=== PATIENT | male | born 1935 | race Caucasian/White ===

== ENCOUNTER → 2016-04-29 | Outpatient (CLI) | payer OTHER, MEDICARE | END | disposition home or self-care (01) | LOC: RAD 20:00 | PROC: 0TH533Z Insertion of Infusion Device into Kidney, Percutaneous Approach (ICD-10-PCS; principal; 2016-04-29) | DX: N13.9 Obstructive and reflux uropathy, unspecified (principal) | CPT/HCPCS: 50433; C1729; C1769; J3010 ==

== ENCOUNTER → 2016-11-26 | Outpatient (CLI) | payer OTHER, MEDICARE ==
[~2016-11-26] MED LIST: AMIODARONE HCL200 MG PO; CALCIUM 500 +1 EACH PO; COUMADIN4 MG PO; LIPITOR40 MG PO; LOPRESSOR25 MG PO; [UNRECOGNIZED DRUG - OTHER] SC
== END | disposition home or self-care (01) ==
LOC: RAD 15:57
DX: T83.022D Displacement of nephrostomy catheter, subsequent encounter (principal)
CPT/HCPCS: 50435; C1725; C1766; C1769

== ENCOUNTER 2017-01-06 23:01 | Inpatient (IN) | payer OTHER, MEDICARE ==
[~2017-01-06] VITALS: Ht 182.9 cm; Wt 93.4 kg
[2017-01-06 23:59] LABS: HEMATOCRIT 36.1 % (38.0-50.0); MCH 25.7 PG (29.0-34.0); MEAN PLAT.VOLUME 9.8 uM^3 (9.0-12.4); PLATELET COUNT 210 K/uL (156-360); RBC DIS.WIDTH-CV 18.1 % (11.8-14.6); RBC DIS.WIDTH-SD 54.7 % (39-53); RED BLOOD COUNT 4.35 M/uL (4.00-5.50); WHITE BLOOD COUNT 8.2 K/uL (4.1-10.2)
[2017-01-07 00:04] LABS: INTER. NORMALIZED RATIO 3.5; PROTHROMBIN TIME 40.7 SEC (10.2-12.9)
[2017-01-07 00:07] LABS: PTT 42.9 SEC (25-37)
[2017-01-07 00:11] LABS: CHLORIDE 98 mEq/L (99-109); POTASSIUM 4.3 mEq/L (3.7-5.4); SODIUM 130 mEq/L (136-147)
[2017-01-07 00:13] LABS: GLUCOSE 157 mg/dL (70-99)
[2017-01-07 00:14] LABS: ANION GAP 12 MEQ/L (2-14)
[2017-01-07 00:15] LABS: TOTAL BILIRUBIN 0.6 mg/dL (0.0-1.0)
[2017-01-07 00:16] LABS: ALKALINE PHOSPHATASE 129 IU/L (3-129)
[2017-01-07 00:17] LABS: GFR ESTIMATE (CALCULATED) 23 mL/min/
[2017-01-07 00:18] LABS: UREA NITROGEN (BUN) 31 mg/dL (9-23)
[2017-01-07 00:20] LABS: LIPASE 39 U/L (1.0-51.0)
[2017-01-07 01:44] LABS: ADD MIUA? YES; BILIRUBIN NEGATIVE; BLOOD MODERATE; COLOR YELLOW ((YELLOW)); GLUCOSE (STRIP) 50; KETONES NEGATIVE; LEUKOCYTES LARGE; NITRITE POSITIVE; PROTEIN (STRIP) 100; SPECIFIC GRAVITY 1.011 (1.000-1.030); UROBILINOGEN 0.2 MG/DL (0.2-1.0)
[2017-01-07 02:16] LABS: BACTERIA 3+ /HPF; CASTS NONE SEEN /LPF; CRYSTALS NONE SEEN; EPITHELIAL CELLS NONE SEEN /HPF; MUCUS NONE SEEN /LPF; RED BLOOD CELLS NONE SEEN /HPF (0-5); UCUL ADDED? YES; WHITE BLOOD CELLS 0-5 /HPF (0-5)
[2017-01-07 05:43] LABS: INTER. NORMALIZED RATIO 3.4; PROTHROMBIN TIME 38.9 SEC (10.2-12.9)
[2017-01-07 06:07] VITALS: BP 147/69
[2017-01-07 07:45] VITALS: BP 148/67
[2017-01-07 08:47] LABS: HEMATOCRIT 37.6 % (38.0-50.0); MCH 24.9 PG (29.0-34.0); MCHC 30.1 G/DL (30.0-36.0); MEAN PLAT.VOLUME 9.9 uM^3 (9.0-12.4); PLATELET COUNT 205 K/uL (156-360); RBC DIS.WIDTH-CV 18.3 % (11.8-14.6); RBC DIS.WIDTH-SD 55.8 % (39-53); RED BLOOD COUNT 4.53 M/uL (4.00-5.50); WHITE BLOOD COUNT 8.8 K/uL (4.1-10.2)
[2017-01-07 09:10] LABS: ANION GAP 12 MEQ/L (2-14); CHLORIDE 101 MEQ/L (99-109); GFR ESTIMATE (CALCULATED) 23 mL/min/; GLUCOSE 162 mg/dL (70-99); POTASSIUM 4.3 MEQ/L (3.7-5.4); SAMPLE HEMOLYSIS CHECK 0; SAMPLE ICTERIC CHECK 0; SAMPLE LIPEMIA CHECK 0; SODIUM 135 MEQ/L (136-147); UREA NITROGEN (BUN) 32 mg/dL (9-23)
[2017-01-07 12:17] LABS: POINT-OF-CARE METER ID UU13113774
[2017-01-07 13:02] VITALS: BP 110/75
[2017-01-07 15:29] VITALS: BP 136/69
[2017-01-07 16:28] LABS: POINT-OF-CARE METER ID UU13113725
[2017-01-07 21:23] LABS: POINT-OF-CARE METER ID UU13113725
[2017-01-07 22:01] VITALS: BP 162/77
[2017-01-07 22:35] VITALS: BP 162/77
[2017-01-08 00:10] VITALS: BP 134/62
[2017-01-08 03:54] VITALS: BP 154/96
[2017-01-08 05:46] LABS: BASOPHIL COUNT 0.1 K/uL (0-0.1); EOSINOPHIL (%) 3.4 % (0-5); EOSINOPHIL COUNT 0.3 K/uL (0-0.3); HEMATOCRIT 36.5 % (38.0-50.0); IMMATURE GRANULOCYTE (%) 0.7 % (0.0-0.7); IMMATURE GRANULOCYTE COUNT 0.1 K/uL; INSTRUMENT ABS NEUTROPHIL CT 5.5 K/uL; LYMPHOCYTE COUNT 0.6 K/uL (1.0-2.8); MCHC 29.9 G/DL (30.0-36.0); MCV 83.7 FL (86-99); MEAN PLAT.VOLUME 9.4 uM^3 (9.0-12.4); MONOCYTE (%) 13.5 % (3-12); NEUTROPHIL (%) 74.3 % (45-76); NEUTROPHIL COUNT 5.5 K/uL (1.8-6.4); PLATELET COUNT 213 K/uL (156-360); RBC DIS.WIDTH-CV 17.9 % (11.8-14.6); RBC DIS.WIDTH-SD 54.8 % (39-53); RED BLOOD COUNT 4.36 M/uL (4.00-5.50); WHITE BLOOD COUNT 7.4 K/uL (4.1-10.2)
[2017-01-08 05:59] LABS: INTER. NORMALIZED RATIO 3.5; PROTHROMBIN TIME 41.1 SEC (10.2-12.9)
[2017-01-08 06:19] LABS: POINT-OF-CARE METER ID UU13113774
[2017-01-08 06:21] LABS: ANION GAP 7 MEQ/L (2-14); CHLORIDE 105 MEQ/L (99-109); GFR ESTIMATE (CALCULATED) 23 mL/min/; GLUCOSE 79 mg/dL (70-99); POTASSIUM 4.3 MEQ/L (3.7-5.4); SAMPLE HEMOLYSIS CHECK 0; SAMPLE ICTERIC CHECK 0; SAMPLE LIPEMIA CHECK 0; SODIUM 136 MEQ/L (136-147); UREA NITROGEN (BUN) 31 mg/dL (9-23)
[2017-01-08 07:42] VITALS: BP 184/80
[2017-01-08] MEDS ORDERED: METRONIDAZOLE500 MG PO (10:56)
[2017-01-08 11:49] LABS: POINT-OF-CARE METER ID UU13113725
[2017-01-08] MEDS ORDERED: CIPRO250 MG PO (13:01)
[2017-01-08 15:11] LABS: UR CREATININE CONCENTRATION 52.4 MG/DL
[2017-01-08 15:12] LABS: URINE TOTAL PROTEIN 106 MG/DL (0-10)
== END 2017-01-08 17:06 | disposition home or self-care (01) | DRG 690 ==
LOC: EME 23:01 → 5EAST 01-07 04:03 → EDOF 01-07 04:03 → ENRESERV 01-07 04:07 → 5EAST 01-07 05:55 → ENPENDDIS 01-08 → 5EAST 01-08 17:06
PROVIDERS: Emergency Medicine; Internal Medicine; Physician Assistant
DX: N10 Acute pyelonephritis (principal); I48.2 Chronic atrial fibrillation; N18.4 Chronic kidney disease, stage 4 (severe); I12.9 Hypertensive chronic kidney disease with stage 1 through stage 4 chronic kidney disease, or unspecified chronic kidney disease; E87.1 Hypo-osmolality and hyponatremia; E11.22 Type 2 diabetes mellitus with diabetic chronic kidney disease; K57.20 Diverticulitis of large intestine with perforation and abscess without bleeding; E11.21 Type 2 diabetes mellitus with diabetic nephropathy; E78.2 Mixed hyperlipidemia; N30.01 Acute cystitis with hematuria; I25.10 Atherosclerotic heart disease of native coronary artery without angina pectoris; C34.31 Malignant neoplasm of lower lobe, right bronchus or lung; C79.51 Secondary malignant neoplasm of bone; Z85.528 Personal history of other malignant neoplasm of kidney; Z95.1 Presence of aortocoronary bypass graft; Z87.891 Personal history of nicotine dependence; Z90.5 Acquired absence of kidney; Z79.01 Long term (current) use of anticoagulants; I69.320 Aphasia following cerebral infarction; Z92.21 Personal history of antineoplastic chemotherapy; Z79.899 Other long term (current) drug therapy
CPT/HCPCS: 74176; 80048; 80053; 81003; 82570; 82948; 83605; 83690; 84156; 85025; 85027; 85610; 85730; 86335; 87040; 87086; 99281; 99285; J0692; J1815; J7030; J7050; S0030